=== PATIENT | female | born 1980 | race African-American/Black ===

== ENCOUNTER 2018-01-11 10:30 | Emergency (ER) | payer OTHER ==
--- NOTE | 2018-01-11 10:43 | ED Physician Documentation ---
PD HPI CHEST PAIN - Stated complaint Stated Complaint: CHEST TIGHTNESS - History obtained from History obtained from: Patient - History of Present Illness Timing - onset: How many weeks ago (couple weeks of feeling pain in sternal area chest associated with feeling of dyspnea, like something is in the way when she breaths. No wheezing per se. No cough.) Timing - onset during: Rest, Light activity Timing - duration: Weeks Timing - details: Gradual onset, Still present (she has had feeling of pain with breathing and feeling that she is not getting easy breaths worsening the past several weeks. More noted with activity.) Quality: Aching, Pain Location: Substernal, Left chest (upper chest/ lower throat area.) Radiation: Neck Improved by: Rest Worsened by: Exertion, Inspiration Associated symptoms: Shortness of air. No: Nausea, Vomiting, Feeling faint / dizzy, Palpitations, Cough Similar symptoms before: Has not had sx before Recently seen: Not recently seen Review of Systems Constitutional: denies: Fever, Chills Nose: denies: Rhinorrhea / runny nose, Congestion Throat: denies: Sore throat Cardiac: reports: Chest pain / pressure (upper chest/left side and upper substernal area). denies: Palpitations Respiratory: reports: Dyspnea. denies: Cough, Wheezing GI: denies: Abdominal Pain, Nausea, Vomiting : denies: Dysuria, Discharge Skin: denies: Rash, Lesions Neurologic: denies: Generalized weakness, Focal weakness, Numbness, Near syncope PD PAST MEDICAL HISTORY - Past Medical History Cardiovascular: None Respiratory: None Neuro: None Endocrine/Autoimmune: None GI: None - Present Medications Home Medications: Ambulatory Orders Medication Instructions Recorded Confirmed Albuterol Sulf [Ventolin Hfa 2 - 3 puffs INH Q4HR PRN #1 inhaler 01/11/18 Inhaler] Naproxen 375 mg PO BID #20 tablet 01/11/18 Tramadol HCl 50 mg PO Q6H PRN #20 tablet 01/11/18 - Allergies Allergies/Adverse Reactions: Allergies Allergy/AdvReac Type Severity Reaction Status Date / Time adhesive tape Allergy Mild Itching Verified 01/11/18 10:40 - Family History Family history: reports: Non contributory PD ED PE NORMAL - Vitals Vital signs reviewed: Yes - General General: Alert and oriented X 3, No acute distress, Well developed/nourished - HEENT HEENT: Ears normal, Pharynx benign, Other (normal voice) - Neck Neck: Supple, no meningeal sign, No adenopathy, Thyroid normal, No JVD - Cardiac Cardiac: RRR, No murmur - Respiratory Respiratory: No respiratory distress, Clear bilaterally - Abdomen Abdomen: Soft, Non tender - Back Back: No CVA TTP - Derm Derm: Normal color, Warm and dry, No rash - Extremities Extremities: No deformity, No tenderness to palpate, Normal ROM s pain - Neuro Neuro: Alert and oriented X 3, booth cleaner 2-12 intact, No motor deficit, Normal speech Results - Vitals Vitals: Vital Signs - 24 hr 01/11/18 01/11/18 01/11/18 10:34 10:50 11:18 Temperature 36.8 C Heart Rate 69 78 90 Respiratory 20 15 14 Rate Blood Pressure 119/79 119/79 O2 Saturation 100 100 01/11/18 01/11/18 01/11/18 11:25 12:25 15:44 Temperature 36.5 C Heart Rate 79 78 81 Respiratory 15 15 18 Rate Blood Pressure 124/81 H 130/83 H 134/90 H O2 Saturation 100 100 100 Oxygen O2 Source Room air - Labs Labs: Laboratory Tests 01/11/18 01/11/18 01/11/18 10:45 10:45 10:45 WBC 6.3 RBC 4.97 Hgb 12.2 Hct 37.7 MCV 76.0 L MCH 24.5 L MCHC 32.3 RDW 14.3 Plt Count 211 MPV 9.2 Neut # (Auto) 3.6 Lymph # (Auto) 1.8 [place] # (Auto) 0.6 Eos # (Auto) 0.1 Baso # (Auto) 0.2 H Absolute Nucleated RBC 0.01 Nucleated RBC % 0.1 D-Dimer Sodium 136 Potassium 3.3 L Chloride 102 Carbon Dioxide 23 Anion Gap 11.0 BUN 7 Creatinine 0.7 Estimated GFR (MDRD) 113 Glucose 90 Calcium 8.6 Total Bilirubin 1.0 AST 20 ALT 16 Alkaline Phosphatase 48 Troponin I < 0.04 B-Natriuretic Peptide Total Protein 7.0 Albumin 3.6 Globulin 3.4 Albumin/Globulin Ratio 1.1 Lipase 21 L 01/11/18 01/11/18 10:45 10:45 WBC RBC Hgb Hct MCV MCH MCHC RDW Plt Count MPV Neut # (Auto) Lymph # (Auto) [place] # (Auto) Eos # (Auto) Baso # (Auto) Absolute Nucleated RBC Nucleated RBC % D-Dimer 603.1 H Sodium Potassium Chloride Carbon Dioxide Anion Gap BUN Creatinine Estimated GFR (MDRD) Glucose Calcium Total Bilirubin AST ALT Alkaline Phosphatase Troponin I B-Natriuretic Peptide 22 Total Protein Albumin Globulin Albumin/Globulin Ratio Lipase - Rads (name of study) chest xray Radiology: Prelim report reviewed (normal), EMP read contemporaneously (normal) CT-A chest Radiology: Prelim report reviewed (no PE, but large cyst of thorid, in substernal/subclavicular area. Recommend U/S) soft tissue U/S of neck Radiology: Prelim report reviewed (large cyst of thyroid. Also dense area left lobe, recommend drainage and biopsy. ) PD MEDICAL DECISION MAKING - ED course Complexity details: reviewed results (CXR was okay. had pleuritic pain and feeling of dyspnea, with elevated d-dimer so got CT-A chest. No PEs but did find a large cyst off thyroid that was impinging trachea area. U/S recommended. This was done and was c/w cyst. Also small dense area of thyroid too. Talked with Dr. Ochoa Fitzpatrick, who said he would see her in office next couple of days and arrange for this to be drained and biopsied. ), re-evaluated patient (she did feel better with albuterol neb. ), considered differential, d/w patient - Sepsis Event Vital Signs: Vital Signs - 24 hr 01/11/18 01/11/18 01/11/18 10:34 10:50 11:18 Temperature 36.8 C Heart Rate 69 78 90 Respiratory 20 15 14 Rate Blood Pressure 119/79 119/79 O2 Saturation 100 100 01/11/18 01/11/18 01/11/18 11:25 12:25 15:44 Temperature 36.5 C Heart Rate 79 78 81 Respiratory 15 15 18 Rate Blood Pressure 124/81 H 130/83 H 134/90 H O2 Saturation 100 100 100 Oxygen O2 Source Room air Departure - Departure Disposition: 01 Home, Self Care Clinical Impression: Thyroid cyst Dyspnea Qualifiers: Dyspnea type: shortness of breath Qualified Code(s): R06.02 - Shortness of breath Condition: Stable Record reviewed to determine appropriate education?: Yes Instructions: ED Dyspnea Shortness of Breath Prescriptions: Albuterol Sulf [Ventolin Hfa Inhaler] 2 - 3 puffs INH Q4HR PRN #1 inhaler PRN Reason: Shortness Of Air/Wheezing Naproxen 375 mg PO BID #20 tablet Tramadol HCl 50 mg PO Q6H PRN #20 tablet PRN Reason: Pain Comments: Your symptoms are coming from a large thyroid cyst that is to the side of the breathing passage and underneath the collarbone. This will need draining for biopsy. There is a small nodule in the thyroid as well that will likely need biopsy to. I presume this will be done at the same time. I talked with Dr. Fitzpatrick, our surgeon on-call, who said he will see you in the office in the next couple of days to arrange and get this done. It would be outpatient here at this facility. Meanwhile you can use the albuterol inhaler 2 - 3 puffs 4 times a day, and naproxen twice daily for inflammation and pain and add Tylenol or tramadol if needed for pain. Discharge Date/Time: 01/11/18 15:43
[2018-01-11] MEDS ORDERED: KETOROLAC 60 MG/2 ML VIAL IVP STA (11:05)
[2018-01-11] MEDS ORDERED: ALBUTEROL NEB 2.5 MG/3 ML INH STA (11:05)
[2018-01-11] MEDS ORDERED: DEXAMETHASONE 10 MG/ML VIAL IVP STA (11:05)
[2018-01-11 11:13] LABS: BASOPHILS # (AUTO) 0.2 10^3/uL (0.0-0.1); BASOPHILS % (AUTO) 2.8 %; EOSINOPHILS # (AUTO) 0.1 10^3/uL (0.0-0.7); EOSINOPHILS % (AUTO) 1.8 %; HGB - HEMOGLOBIN 12.2 g/dL (12.0-16.0); LYMPHOCYTES # (AUTO) 1.8 10^3/uL (1.5-3.5); LYMPHOCYTES % (AUTO) 28.7 %; MEAN CORPUSCULAR HEMOGLOBIN 24.5 pg (27.0-31.0); MEAN CORPUSCULAR HGB CONC 32.3 g/dL (32.0-36.0); MEAN PLATELET VOLUME 9.2 fL (7.9-10.8); MONOCYTES # (AUTO) 0.6 10^3/uL (0.0-1.0); NEUTROPHILS # (AUTO) 3.6 10^3/uL (1.5-6.6); NEUTROPHILS % (AUTO) 57.7 %; PLT - PLATELET COUNT 211 10^3/uL (130-450); RED BLOOD COUNT 4.97 10^6/uL (4.20-5.40); RED CELL DISTRIBUTION WIDTH 14.3 % (12.0-15.0); WHITE BLOOD COUNT 6.3 x10^3/uL (4.8-10.8)
[2018-01-11 11:31] LABS: ALBUMIN 3.6 g/dL (3.2-5.5); ALBUMIN/GLOBULIN RATIO 1.1 (1.0-2.2); CALCIUM 8.6 mg/dL (8.5-10.3); CREATININE 0.7 mg/dL (0.4-1.0)
[2018-01-11] MEDS ORDERED: SODIUM CHLORIDE 0.9% 1,000 ML IV ONE (12:00)
[2018-01-11] MEDS ORDERED: MORPHINE 10 MG/ML VIAL IVP STA (12:00)
[2018-01-11] MEDS ORDERED: IOPAMIDOL-300 100 ML VIAL ONE (12:13)
--- NOTE | 2018-01-11 12:15 | XRAY Report ---
Procedure Date: 01/11/2018 Accession Number: [id number] / [id number] Procedure: XR - Chest 2 View X-Ray CPT Code: 95144 FULL RESULT: EXAM: CHEST RADIOGRAPHY EXAM DATE: 01/11/2018 11:43 AM. CLINICAL HISTORY: Dyspnea and chest tightness for 2 weeks. COMPARISON: None. TECHNIQUE: 2 views. FINDINGS: Lungs/Pleura: No focal opacities evident. No pleural effusion. No pneumothorax. Normal volumes. Mediastinum: Heart and mediastinal contours are unremarkable. Other: None. IMPRESSION: Normal 2-view chest radiography. [facility]
[2018-01-11] MEDS ORDERED: IOPAMIDOL-300 100 ML VIAL IVP ONE (12:17)
--- NOTE | 2018-01-11 12:48 | CT Report ---
Procedure Date: 01/11/2018 Accession Number: [id number] / [id number] Procedure: CT - Chest Angio (PE) CPT Code: FULL RESULT: EXAM: CT ANGIOGRAM CHEST EXAM DATE: 01/11/2018 12:26 PM. CLINICAL HISTORY: Chest pain and dyspnea for days; elevated d-dimer. COMPARISON: None. TECHNIQUE: Routine helical imaging was performed through the chest in the pulmonary arterial phase. IV Contrast: 80 cc Isovue 300. Reconstructions: Coronal 3-D MIP reconstructions.Sagittal and coronal. In accordance with CT protocol optimization, one or more of the following dose reduction techniques were utilized for this exam: automated exposure control, adjustment of mA and/or KV based on patient size, or use of iterative reconstructive technique. FINDINGS: Pulmonary Arteries: Diagnostic quality: Adequate through the segmental arteries. No evidence for acute or chronic pulmonary emboli. RV/LV is within normal limits. There is no interventricular septal bowing. There is no reflux of contrast material in the IVC. Lungs/Pleura: No consolidation, nodules, or edema. No effusions or pneumothorax. Mediastinum: Normal. No cardiac enlargement or adenopathy. Thoracic Aorta: Unremarkable. Upper Abdomen: Unremarkable. Other: Low-density left paratracheal cyst measures 6.0 x 4.5 x 5.0 cm. There is mild rightward bowing of the trachea. IMPRESSION: 1. No pulmonary emboli. No evidence of acute abnormality in the chest. 2. Cystic structure in the left paramedian inferior neck and superior mediastinum. Recommend thyroid ultrasound as a next imaging step if this lesion has not been previously diagnosed. [facility]
--- NOTE | 2018-01-11 14:53 | Ultrasound Report ---
Procedure Date: 01/11/2018 Accession Number: [id number] / [id number] Procedure: US - Head or Neck Soft Tissue CPT Code: FULL RESULT: EXAM: THYROID ULTRASOUND EXAM DATE: 01/11/2018 02:17 PM. CLINICAL HISTORY: Thyroid/hilar cyst structure on CT; recommended US. COMPARISON: CTA chest 01/11/2018. TECHNIQUE: Real time sonographic imaging of the thyroid was performed by the equipment detailer. Multiple industrial relations representative static images were saved for review. FINDINGS: THYROID GLAND: Right Lobe: 4.5 x 2.0 x 2.1 cm, volume 9.8 cc. Normal background echotexture. Right Lobe Nodules: 1. Solid, isoechoic with a hypoechoic rim at the upper pole measuring 7 x 4 x 6 mm. Left Lobe: 6.7 x 4.2 x 4.1 cm, volume 60.3 cc. Normal background echotexture. Left Lobe Nodules: 1. Upper pole, solid and minimally heterogeneous. This is isoechoic and highly vascular measure 1.7 x 1.0 x 1.3 cm. 2. Predominately cystic with some likely avascular nodularity and minimal septations measuring up to 6.9 x 4.8 x 4.5 cm. This extends substernal. Isthmus: 0.5 cm AP. Isthmic Nodules: None. LYMPH NODES: No adenopathy demonstrated in the central or lateral compartment. OTHER: None. IMPRESSION: 1. Mildly complex cystic lesion at the lower pole of the left lobe of the thyroid extending substernal measuring up to 6.9 cm. This lesion as well as the vascular lesion in the left lobe meet size criteria for biopsy by [facility] guidelines. Management recommendations are based on 2015 [place] [employer] Management Guidelines for Adult Patients with Thyroid Nodules and Differentiated Thyroid Cancer. [facility]
[2018-01-11 15:45] VITALS: BP 134/90
== END 2018-01-11 15:43 | disposition home or self-care (01) ==
LOC: ED 10:30
DX: E04.1 Nontoxic single thyroid nodule (principal)
CPT/HCPCS: 36415; 71046; 71275; 76536; 80053; 83690; 83880; 84484; 85025; 85379; 93005; 96361; 96374; 96375; 99284; Q9967

== ENCOUNTER 2018-01-14 12:08 | Outpatient (CLI) | payer OTHER | END 2018-01-14 12:09 | disposition home or self-care (01) | LOC: LAB 12:08 | PROVIDERS: ATTEND Internal Medicine Gastroenterology | DX: E04.1 Nontoxic single thyroid nodule (principal) | CPT/HCPCS: 36415; 84443; 86800 ==

== ENCOUNTER 2018-02-06 09:11 | Outpatient (CLI) | payer OTHER ==
--- NOTE | 2018-02-06 12:30 | Ultrasound Report ---
Procedure Date: 02/06/2018 Accession Number: [id number] / [id number] Procedure: US - Fine Needle Aspiration CPT Code: FULL RESULT: EXAM: Fine Needle Aspiration DATE: 02/06/2018 11:07 AM CLINICAL HISTORY: NONTOXIC SINGLE THYROID NODULE COMPARISON: None. TECHNIQUE: Written informed consent was obtained. The patient was brought to the ultrasound procedure room and placed in the supine position with a towel behind the shoulders hyperextending the neck. The patient's left neck was prepped and draped in the usual sterile fashion after preliminary ultrasound images were obtained. Following establishment of local anesthesia was lidocaine intradermal and subdermal injection, fine-needle aspiration of 2 target lesions was performed. Fine-needle aspirates were washed in separate specimen containers with the appropriate solution. Samples were submitted to pathology. All needles were removed. A Band-Aid was applied. FINDINGS: Preliminary ultrasound showed a solid left upper thyroid lobe nodule and a left lower thyroid cyst. No solid component of the cyst was identified. Both of these were sampled with fine-needle aspiration. The patient appeared to tolerate the procedure well. IMPRESSION: Fine-needle aspiration of a left thyroid cyst and a left thyroid solid nodule. [facility]
== END 2018-02-06 09:12 | disposition home or self-care (01) ==
LOC: DI 09:11
PROVIDERS: ATTEND Internal Medicine Gastroenterology
DX: E04.1 Nontoxic single thyroid nodule (principal)
CPT/HCPCS: 10022

== ENCOUNTER 2018-04-14 07:55 | Outpatient (CLI) | payer OTHER ==
--- NOTE | 2018-04-14 13:47 | Ultrasound Report ---
Reason: SYMPTOMATIC LARGE LEFT THYROID CYST Procedure Date: 04/14/2018 Accession Number: [id number] / [id number] Procedure: US - Fine Needle Aspiration CPT Code: FULL RESULT: EXAM: Fine Needle Aspiration DATE: 04/14/2018 10:35 AM CLINICAL HISTORY: SYMPTOMATIC LARGE LEFT THYROID CYST TECHNIQUE: Real-time scanning by the machine setter supervisor with me present and saved static images reviewed. COMPARISON: Chest CT 01/11/2018, thyroid FNA 02/06/2018 FINDINGS: Initial ultrasound images of the left neck prior to an anticipated FNA demonstrated a small fluid collection with slightly undulating steen adjacent to the left lobe of the thyroid extending inferiorly. The collection is significantly smaller than the prior 02/06/2018 ultrasound. Although the collection is adjacent to the thyroid it does not clearly originate from within the thyroid. Review of the CT images from 01/11/2018 suggests that the cystic lesion extends into the chest to the level of the superior aortic arch. The lesion exerts mass effect on the left thyroid lobe, trachea, left carotid artery, and left internal jugular and brachiocephalic veins. This potentially may represent a branchial cleft cyst, lymphangioma, or other cystic lesion not of thyroid origin. After discussion with the patient of potential risks and complications and alternatives to proceeding with a cyst drainage, it was elected to schedule the patient for a dedicated neck CT to define the precise anatomy and extent of the cystic lesion. Potential percutaneous aspiration versus surgical drainage will be considered after this additional information is obtained. The scheduled left neck cyst aspiration is canceled today. IMPRESSION: Cancelled left neck cyst aspiration. Neck CT with contrast to be scheduled after order received from Dr. Fitzpatrick's office. Discussed with Dr. Fitzpatrick.
== END 2018-04-14 07:56 | disposition home or self-care (01) ==
LOC: DI 07:55
PROVIDERS: ATTEND Internal Medicine Gastroenterology
DX: E04.1 Nontoxic single thyroid nodule (principal)
CPT/HCPCS: 10022

== ENCOUNTER 2018-04-27 08:27 | Outpatient (CLI) | payer OTHER ==
[~2018-04-27 08:27] MED LIST: IOPAMIDOL-300 100 ML VIAL ONE
[2018-04-27] MEDS ORDERED: IOPAMIDOL-300 100 ML VIAL IVP ONE (11:58)
--- NOTE | 2018-04-28 16:09 | CT Report ---
Reason: THYROID NODULE,CYST,LEFT Procedure Date: 04/27/2018 Accession Number: [id number] / [id number] Procedure: CT - Neck Soft Tissue W/ CPT Code: FULL RESULT: EXAM: CT SOFT TISSUE NECK WITH CONTRAST. EXAM DATE: 04/27/2018 10:10 AM. HISTORY: 37-year-old female with left-sided thyroid nodule COMPARISONS: FINE NEEDLE ASPIRATION 04/14/2018 9:13 AM CHEST ANGIO 01/11/2018 12:17 PM. TECHNIQUE: Routine soft tissue neck CT protocol. Reconstructions: Coronal and sagittal. IV contrast: 80 cc Isovue 300. In accordance with CT protocol optimization, one or more of the following dose reduction techniques were utilized for this exam: automated exposure control, adjustment of mA and/or KV based on patient size, or use of iterative reconstructive technique. FINDINGS: Visualized Intracranial Contents: Unremarkable. Orbits: Symmetric and unremarkable. Sinuses: Visualized paranasal sinuses and mastoid air cells are clear. Oral cavity: The visualized oral cavity is unremarkable. The floor of the mouth is symmetric. Pharynx : Pharyngeal mucosa is unremarkable. The infratemporal fossa, parapharyngeal spaces, and retropharyngeal space are unremarkable. The base of the tongue is symmetric and unremarkable. The airway is patent. Larynx: Larynx and supraglottic airway are patent without mass lesion. Vocal cords are symmetric. The visualized trachea is unremarkable. Parotid and Submandibular Glands: Symmetric and unremarkable. Lymph Nodes: No enlarged lymph nodes are identified in the cervical, supraclavicular, and visualized superior mediastinal regions. Soft tissues: Soft tissues are unremarkable. No mass lesion or abnormal enhancement. Vascular Structures: Unremarkable. Thyroid Gland: Compared to prior CT from 01/11/2018, marked interval decrease in size of the cystic lesion inferior to the left thyroid lobe, now maximally measuring 1.6 x 2.4 x 1.9 cm (transverse by craniocaudal) (series 3 image 119, series 5 image 36), previously 4.2 x 4.9 x 5.8 cm. This is likely secondary to interval aspiration. This cystic lesion may be separate from the thyroid gland. The thyroid gland otherwise appears unremarkable. Lung: The visualized lung apices are clear. Bones: No evidence of acute fracture or malalignment. There are mild degenerative changes. Other: None. IMPRESSION: 1. Compared to prior CT from 01/11/2018, marked interval decrease in size of the cystic lesion inferior to the left thyroid lobe, now maximally measuring 1.6 x 2.4 x 1.9 cm (transverse by craniocaudal) (series 3 image 119, series 5 image 36), previously 4.2 x 4.9 x 5.8 cm. This is likely at least partially secondary to interval aspiration. This cystic lesion may be separate from the thyroid gland. The thyroid gland otherwise appears unremarkable. Overall, this lesion likely represents a benign cystic lesion, with possible diagnostic consideration including lymphatic malformation, branchial cleft cyst, thyroglossal duct cyst, and thymic cyst. 2. No CT evidence of soft tissue mass elsewhere. No evidence of adenopathy, abscess, or definite mucosal abnormality. [facility]
== END 2018-04-27 08:28 | disposition home or self-care (01) ==
LOC: DI 08:27
PROVIDERS: ATTEND Internal Medicine Gastroenterology
DX: E04.1 Nontoxic single thyroid nodule (principal)
CPT/HCPCS: 70491; Q9967